=== PATIENT | female | born 1995 | race Caucasian/White ===

== ENCOUNTER 2018-11-08 22:06 | Emergency (ER) | payer OTHER ==
[~2018-11-08] VITALS: Ht 167.6 cm; Wt 50.0 kg
[2018-11-08 22:23] VITALS: Ht 167.6 cm; Wt 50.0 kg
[2018-11-08] MEDS ORDERED: BUPRENORPHINE HC2 MG SL (22:24)
[2018-11-08 22:51] LABS: APPEARANCE CLEAR (CLEAR); BILIRUBIN NEGATIVE (NEGATIVE); COLOR YELLOW (YELLOW); GLUCOSE NEGATIVE (NEGATIVE); KETONE SMALL mg/dL (NEGATIVE); NITRITE NEGATIVE (NEGATIVE); PROTEIN NEGATIVE (NEGATIVE); UROBILINOGEN NORMAL (NORMAL)
[2018-11-08 22:52] LABS: HCG URINE NEGATIVE (NEGATIVE)
[2018-11-08 22:58] LABS: UDS - AMPHET NEGATIVE QUAL (NEGATIVE); UDS - BARB NEGATIVE QUAL (NEGATIVE); UDS - BENZO NEGATIVE QUAL (NEGATIVE); UDS - COCAINE NEGATIVE QUAL (NEGATIVE); UDS - OPIATE NEGATIVE QUAL (NEGATIVE); UDS - PCP NEGATIVE QUAL (NEGATIVE); UDS - THC POSITIVE QUAL (NEGATIVE)
[2018-11-08 23:12] LABS: BASOPHILS 0.4 % (0-2); EOSINOPHILS 0.5 % (0-7); HEMATOCRIT 46.7 % (36.0-48.0); HEMOGLOBIN 16.8 g/dL (12-16); IMMATURE GRANULOCYTES 0.3 % (0-5); LYMPHOCYTES 29.4 % (15-50); MCH 32.9 pg (26.0-34.0); MCV 91.6 fL (80.0-100.0); MEAN PLATELET VOLUME 9.7 fL (7.4-10.4); MONOCYTES 5.3 % (2-11); NEUTROPHILS 64.1 % (40-80); PLATELET COUNT 240 10x3/uL (130-400); RDW 12.9 % (11.5-14.5)
[2018-11-08 23:26] LABS: ALBUMIN 4.2 g/dL (3.4-5.0); ALKALINE PHOSPHATASE 86 U/L (46-116); ALT (SGPT) 55 U/L (10-68); BILIRUBIN - TOTAL 0.32 mg/dL (0.2-1.3); CALC OSMOLALITY 284 mosm/kg (275-300); CALCIUM 8.4 mg/dL (8.5-10.1); CHLORIDE - SERUM 106 mmol/L (98-107); CREATININE - SERUM 0.7 mg/dL (0.6-1.3); GLUCOSE 89 mg/dL (74-106); POTASSIUM - SERUM 3.9 mmol/L (3.5-5.1); PROTEIN - SERUM 8.7 g/dL (6.4-8.2); SODIUM 144 mmol/L (136-145); UREA NITROGEN 9 mg/dL (7-18); eGFR NON AFRICAN AMERICAN > 90 mL/min (90-120)
[2018-11-08 23:27] LABS: MAGNESIUM - SERUM 2.3 mg/dL (1.8-2.4)
[2018-11-09 11:27] VITALS: BP 133/85
== END 2018-11-09 12:06 ==
LOC: EDBD 22:06 → D.ER 22:06
PROVIDERS: Emergency Medicine
DX: R45.851 Suicidal ideations (principal); F32.9 Major depressive disorder, single episode, unspecified; F31.9 Bipolar disorder, unspecified